=== PATIENT | female | born 1955 | race African-American/Black ===

== ENCOUNTER 2016-11-09 10:09 | Day surgery (SDC) | payer BC ==
[~2016-11-09] VITALS: Ht 157.5 cm; Wt 97.5 kg
--- NOTE | ~2016-11-09 | EGD ---
EGD REPORT [facility] [address] [place] [address] NAME: SOCO MONDRAGON : 51 STATUS : REG [facility] [place] PAT#: [id number] AGE: 60 ADM/REG DATE : 11/09/16 MR#: [id number] REPORT SERV DATE: 11/09/16 DICTATED BY: JACOBO ARENAS DATE: 11/09/16 REPORT STATUS : Draft [facility]: [facility] DATE: 11/09/16 Endoscopy Center Patient Name: Soco Mondragon. Date of : 1955 Attending MD: JOSE MANUEL ARENAS MD Procedure Date No Time: 11/09/2016 Procedure: Colonoscopy Indications: Iron deficiency anemia Referring MD: Zachary Holland Medicines: See the Anesthesia note for documentation of the administered medications Complications: No immediate complications. Estimated blood loss: None. Procedure: Pre-Anesthesia Assessment: - ASA Grade Assessment: III - A patient with severe systemic disease. - Prior to the procedure, a History and Physical was performed, and patient medications and allergies were reviewed. The patient's tolerance of previous anesthesia was also reviewed. The risks and benefits of the procedure and the sedation options and risks were discussed with the patient. All questions were answered, and informed consent was obtained. Prior Anticoagulants: The patient has taken aspirin and naproxen, last doses were 1 day prior to procedure. After reviewing the risks and benefits, the patient was deemed in satisfactory condition to undergo the procedure. - Prior to the procedure, a History and Physical was performed, and patient medications and allergies were reviewed. The patient's tolerance of previous anesthesia was also reviewed. The risks and benefits of the procedure and the sedation options and risks were discussed with the patient. All questions were answered, and informed consent was obtained. Prior Anticoagulants: The patient has taken Xarelto (rivaroxaban), last dose was 2 days prior to procedure. After reviewing the risks and benefits, the patient was deemed in satisfactory condition to undergo the procedure. After I obtained informed consent, the scope was passed under direct vision. Throughout the procedure, the patient's blood pressure, pulse, and oxygen saturations were monitored continuously. The PCF [id number] was introduced through the anus and advanced to the terminal ileum. The ileocecal valve, appendiceal orifice, terminal ileum and rectum were photographed. The entire EGD REPORT [place] [id number] [facility]. [address] NAME: SOCO MONDRAGON : [birth year] STATUS : REG [facility]#: [id number] AGE: 60 ADM/REG DATE : 11/09/16 MR#: [id number] REPORT SERV DATE: 11/09/16 DICTATED BY: JACOBO ARENAS DATE: 11/09/16 REPORT STATUS : Draft TRANSCRIBED BY: [facility] DATE: 11/09/16 colon was examined. The colonoscopy was performed without difficulty. The patient tolerated the procedure well. The quality of the bowel preparation was adequate. Findings: The perianal and digital rectal examinations were normal. The terminal ileum appeared normal. A sessile polyp was found at the hepatic flexure. The polyp was diminutive in size. The polyp was removed with a cold biopsy forceps. Resection and retrieval were complete. Non-bleeding internal hemorrhoids were found during retroflexion and were Grade I (internal hemorrhoids that do not prolapse). The exam was otherwise without abnormality on direct and retroflexion views. Impression: - The examined portion of the ileum was normal. - One diminutive polyp at the hepatic flexure. Resected and retrieved. - Non-bleeding internal hemorrhoids. - The examination was otherwise normal on direct and retroflexion views. Recommendation: - Patient has a contact number available for emergencies. The signs and symptoms of potential delayed complications were discussed with the patient. Return to normal activities tomorrow. Written discharge instructions were provided to the patient. - Regular diet. - Discharge patient to home. - Continue present medications. - Await pathology results. - Repeat colonoscopy for surveillance based on pathology results. - Please restart your Xarelto today Procedure Code(s): --- Professional --- 11630, Colonoscopy, flexible, proximal to splenic flexure; with biopsy, single or multiple Diagnosis Code(s): --- Professional --- K64.0, First degree hemorrhoids D12.3, Benign neoplasm of transverse colon D50.9, Iron deficiency anemia, unspecified CPT copyright 2013 [employer]. All rights reserved. The codes documented in this report are preliminary and upon certified procedural coder review may EGD REPORT [facility] [address] [place] [address] NAME: SOCO MONDRAGON : 51 STATUS : REG [facility] [place] PAT#: [id number] AGE: 60 ADM/REG DATE : 11/09/16 MR#: [id number] REPORT SERV DATE: 11/09/16 DICTATED BY: JACOBO ARENAS DATE: 11/09/16 REPORT STATUS : Draft TRANSCRIBED BY: [employer] DATE: 11/09/16 be revised to meet current compliance requirements. JOSE MANUEL ARENAS MD 11/09/2016 12:12 PM This report has been signed electronically. Number of Addenda: 0 Note Initiated On: 11/09/2016 11:31 AM Scope Withdrawal Time 0 hours 6 minutes 20 seconds [address] [address]
--- NOTE | ~2016-11-09 | EGD ---
EGD REPORT [facility] [address] [place] [address] NAME: SOCO MONDRAGON : 51 STATUS : REG [facility] [place] PAT#: [id number] AGE: 60 ADM/REG DATE : 11/09/16 MR#: [id number] REPORT SERV DATE: 11/09/16 DICTATED BY: JACOBO ARENAS DATE: 11/09/16 REPORT STATUS : Draft [facility] DATE: 11/09/16 Endoscopy Center Patient Name: Soco Mondragon. Date of : 1955 Attending MD: JOSE MANUEL ARENAS MD Procedure Date No Time: 11/09/2016 Procedure: Upper GI endoscopy Indications: Iron deficiency anemia Referring MD: Zachary Holland Medicines: See the Anesthesia note for documentation of the administered medications Complications: No immediate complications. Estimated blood loss: None. Procedure: Pre-Anesthesia Assessment: - ASA Grade Assessment: III - A patient with severe systemic disease. - Prior to the procedure, a History and Physical was performed, and patient medications and allergies were reviewed. The patient's tolerance of previous anesthesia was also reviewed. The risks and benefits of the procedure and the sedation options and risks were discussed with the patient. All questions were answered, and informed consent was obtained. Prior Anticoagulants: The patient has taken aspirin and naproxen, last doses were 1 day prior to procedure. [ASA Grade]. After reviewing the risks and benefits, the patient was deemed in satisfactory condition to undergo the procedure. - Prior to the procedure, a History and Physical was performed, and patient medications and allergies were reviewed. The patient's tolerance of previous anesthesia was also reviewed. The risks and benefits of the procedure and the sedation options and risks were discussed with the patient. All questions were answered, and informed consent was obtained. Prior Anticoagulants: The patient has taken Xarelto (rivaroxaban), last dose was 2 days prior to procedure. After reviewing the risks and benefits, the patient was deemed in satisfactory condition to undergo the procedure. After obtaining informed consent, the endoscope was passed under direct vision. Throughout the procedure, the patient's blood pressure, pulse, and oxygen saturations were monitored continuously. The GIF H190 [id number] was introduced through the mouth, and advanced to the second part of duodenum. The upper GI endoscopy was accomplished without difficulty. The patient EGD REPORT [address] [address] NAME: SOCO MONDRAGON : 51 STATUS : REG [facility]#: [id number] AGE: 60 ADM/REG DATE : 11/09/16 MR#: [id number] REPORT SERV DATE: 11/09/16 DICTATED BY: JACOBO ARENAS DATE: 11/09/16 REPORT STATUS : Draft TRANSCRIBED BY: [employer] DATE: 11/09/16 tolerated the procedure well. Findings: The examined duodenum was normal. Biopsies were taken with a cold forceps for histology. Diffuse minimal inflammation characterized by congestion (edema) was found in the stomach. Biopsies were taken with a cold forceps for histology. The cardia and gastric fundus were normal on retroflexion. The examined esophagus was normal. Impression: - Normal examined duodenum. Biopsied. - Gastritis. Biopsied. - Normal esophagus. Recommendation: - Patient has a contact number available for emergencies. The signs and symptoms of potential delayed complications were discussed with the patient. Return to normal activities tomorrow. Written discharge instructions were provided to the patient. - Regular diet. - Discharge patient to home. - Continue present medications. - Await pathology results. Procedure Code(s): --- Professional --- 28387, Esophagogastroduodenoscopy, flexible, transoral; with biopsy, single or multiple Diagnosis Code(s): --- Professional --- K29.70, Gastritis, unspecified, without bleeding D50.9, Iron deficiency anemia, unspecified CPT copyright 2013 [employer]. All rights reserved. The codes documented in this report are preliminary and upon adjunct instructor review may be revised to meet current compliance requirements. JOSE MANUEL ARENAS MD 11/09/2016 11:52 AM This report has been signed electronically. Number of Addenda: 0 Note Initiated On: 11/09/2016 11:35 AM Scope Withdrawal Time 0 hours 0 minutes 0 seconds EGD REPORT [facility] [address] [address] NAME: SOCO MONDRAGON Robert : [birth year] STATUS : REG [facility] [place] PAT#: [id number] AGE: 60 ADM/REG DATE : 11/09/16 MR#: [id number] REPORT SERV DATE: 11/09/16 DICTATED BY: JACOBO ARENAS DATE: 11/09/16 REPORT STATUS : Draft TRANSCRIBED BY: [employer] DATE: 11/09/16 [address] [id number]
[~2016-11-09 10:09] MED LIST: ADVIL PO; ATEN50 PO; CALTRA600D PO; COREG3 PO; CYMBALTA30 PO; HALF81 PO; HARD NAILS PO; KLOR-CON M2020 MEQ PO; L40 PO; LORTAB10 PO; MAXZIDE PO; MIRALAX POWDER1 PKT PO; MULTIPLE VIT PO; NAP500 PO; NEUR300 PO; NORCO1 TAB PO; NORV10 PO; PREV15 PO; PRIN20 PO; PROAIR HFA INH; SPIRO25 PO; TIKOSYN125 MCG PO; VITAMIN D31000 UNIT PO; XARELTO20 MG PO; ZOCOR20 PO; [UNRECOGNIZED DRUG - OTHER] PO
== END 2016-11-09 23:59 | disposition home or self-care (01) ==
LOC: DMU 10:09
PROVIDERS: Internal Medicine Gastroenterology
PROC: 0DBK8ZX Excision of Ascending Colon, Via Natural or Artificial Opening Endoscopic, Diagnostic (ICD-10-PCS; 2016-11-09)
PROC: 0DB98ZX Excision of Duodenum, Via Natural or Artificial Opening Endoscopic, Diagnostic (ICD-10-PCS; principal; 2016-11-09 11:30)
PROC: 0DB68ZX Excision of Stomach, Via Natural or Artificial Opening Endoscopic, Diagnostic (ICD-10-PCS; 2016-11-09 11:30)
DX: K64.0 First degree hemorrhoids (principal); D50.9 Iron deficiency anemia, unspecified; I10 Essential (primary) hypertension; K21.9 Gastro-esophageal reflux disease without esophagitis; J45.909 Unspecified asthma, uncomplicated; I48.91 Unspecified atrial fibrillation; E66.9 Obesity, unspecified; Z90.710 Acquired absence of both cervix and uterus; Z68.39 Body mass index [BMI] 39.0-39.9, adult; Z79.899 Other long term (current) drug therapy; Z98.890 Other specified postprocedural states
CPT/HCPCS: 88305